=== PATIENT | male | born 1950 | race Caucasian/White ===

== ENCOUNTER 2021-06-27 17:01 | Inpatient (IN) | payer OTHER ==
[~2021-06-27] VITALS: Ht 185.4 cm; Wt 77.7 kg
[2021-06-27] MEDS ORDERED: VITAMIN D3125 MCG PO (17:21)
[2021-06-27] MEDS ORDERED: PROTONIX40 MG PO (17:21)
[2021-06-27] MEDS ORDERED: QUALITY CHOICE81 M1 PO (17:22)
[2021-06-27] MEDS ORDERED: RISPERDAL0.5 MG PO (17:23)
[2021-06-27] MEDS ORDERED: FLONASE ALLERG9.9 ML NAS (17:23)
[2021-06-27] MEDS ORDERED: CARAFATE1 G1 PO (17:24)
[2021-06-27] MEDS ORDERED: REMERON SOLTAB30 MG PO (17:33)
[2021-06-27] MEDS ORDERED: COLACE100 MG PO (17:33)
[2021-06-27] MEDS ORDERED: ATIVAN0.5 MG PO (17:34)
[2021-06-27] MEDS ORDERED: VISTARIL25 MG PO (17:34)
[2021-06-27] MEDS ORDERED: VOLTAREN ARTHRI20 GM T (17:35)
[2021-06-27] MEDS ORDERED: COMPAZINE10 M1 PO (17:36)
[2021-06-27] MEDS ORDERED: BACLOFEN5 MG PO (17:36)
[2021-06-27] MEDS ORDERED: CEPHULAC10 GM/151 PO (17:37)
[2021-06-27] MEDS ORDERED: TYLENOL325 M1 PO (17:37)
[2021-06-27] MEDS ORDERED: VENT7GM INH (17:38)
[2021-06-27] MEDS ORDERED: ROBITUSSIN DM 101 OZ PO (17:39)
[2021-06-27] MEDS ORDERED: TENORMIN25 M1 PO (17:39)
[2021-06-27 17:56] VITALS: BP 133/91
[2021-06-27 20:00] VITALS: BP 155/80
[2021-06-28 07:21] LABS: ALBUMIN 4.1 gm/dl (3.1-4.5); BUN 28 mg/dl (7-24); CHLORIDE 119 mmol/L (98-107); CHOLESTEROL 126 mg/dL (<200); CREATININE 1.09 mg/dL (0.70-1.30); LDL CHOLESTEROL 56 mg/dL (9-159); POTASSIUM 3.2 mmol/L (3.5-5.1); SGOT/AST 13 IU/L (3-35); SGPT/ALT 18 U/L (12-78); SODIUM 146 mmol/L (136-145); TRIGLYCERIDES 130 mg/dl (<150)
[2021-06-28 07:29] LABS: ALKALINE PHOSPHATASE 54 U/L (45-117)
[2021-06-28 07:33] LABS: BASO # 0.1 10*3/uL (0.0-0.1); BASO % 1.3 % (0.0-1.0); EOS # 0.2 10*3/uL (0.0-0.4); EOS % 3.8 % (1.0-4.0); HEMATOCRIT 36.9 % (42.0-52.0); LYMPH % 50.3 % (27.0-41.0); MEAN CELL VOLUME 85.4 fl (80.0-94.0); MEAN CORPUSCULAR HGB 31.7 pg (27.0-31.0); MEAN PLATELET VOLUME 11.6 fl (9.6-12.3); MONO # 0.5 10*3/uL (0.1-1.0); MONO % 12.8 % (3.0-9.0); NEUT # 1.2 10*3/uL (2.3-7.9); NEUT % 31.5 % (47.0-73.0); PLATELET COUNT AUTOMATED 225 10*3/uL (130-400); RED BLOOD COUNT 4.32 10*6/uL (4.50-5.90); WHITE BLOOD COUNT 3.9 10*3/uL (4.8-10.8)
[2021-06-28 07:34] LABS: MEAN CORPUSCULAR HGB CONC 37.1 g/dl (33.0-37.0)
[2021-06-28 07:48] LABS: VITAMIN D, 25-HYDROXY 67.5 ng/mL (30-100)
[2021-06-28 08:06] VITALS: BP 121/67
[2021-06-28 15:50] LABS: BILIRUBIN Negative (Negative); BLOOD Negative (Negative); CLARITY Clear (Clear); COLOR Dark Yellow (Yellow); GLUCOSE Negative (Negative); KETONE 1+ (Negative); LEUKO ESTERASE Negative (Negative); NITRITE Negative (Negative); SPECIFIC GRAVITY >= 1.030 (1.001-1.030)
[2021-06-28 16:13] LABS: BACTERIA TRACE; MUCOUS 2+; RBC 0-2 rbc/hpf (0-2)
[2021-06-28 20:00] VITALS: BP 123/74
[2021-06-29 08:00] VITALS: BP 120/79
[2021-06-29 20:00] VITALS: BP 116/84
[2021-06-30 08:00] VITALS: BP 112/62
[2021-06-30 20:00] VITALS: BP 112/89
[2021-07-01 07:56] VITALS: BP 146/65
[2021-07-01 19:33] VITALS: BP 119/74
[2021-07-02 07:30] VITALS: BP 126/72
[2021-07-02 20:00] VITALS: BP 145/94
[2021-07-03 08:00] VITALS: BP 111/68
[2021-07-03 19:44] VITALS: BP 116/82
[2021-07-04 07:58] VITALS: BP 109/61
[2021-07-04 20:00] VITALS: BP 136/88
[2021-07-05 07:25] VITALS: BP 130/75
[2021-07-05 20:00] VITALS: BP 123/86
[2021-07-06 08:00] VITALS: BP 90/62
[2021-07-06 19:28] VITALS: BP 110/71
[2021-07-07 08:00] VITALS: BP 120/64
[2021-07-07 20:00] VITALS: BP 139/71
[2021-07-08 07:57] VITALS: BP 104/53
[2021-07-08 20:00] VITALS: BP 124/72
[2021-07-09 07:55] VITALS: BP 104/61
[2021-07-09 09:57] LABS: ALBUMIN 3.1 gm/dl (3.1-4.5); ALKALINE PHOSPHATASE 59 U/L (45-117); BUN 24 mg/dl (7-24); CHLORIDE 114 mmol/L (98-107); CREATININE 1.12 mg/dL (0.70-1.30); POTASSIUM 2.9 mmol/L (3.5-5.1); SGOT/AST 22 IU/L (3-35); SGPT/ALT 33 U/L (12-78); SODIUM 143 mmol/L (136-145); TOTAL PROTEIN 7.2 gm/dL (6.4-8.2)
[2021-07-09 10:18] LABS: BASO % 0.4 % (0.0-1.0); EOS # 0.2 10*3/uL (0.0-0.4); EOS % 3.3 % (1.0-4.0); HEMATOCRIT 37.1 % (42.0-52.0); LYMPH % 28.7 % (27.0-41.0); MEAN CELL VOLUME 86.3 fl (80.0-94.0); MEAN CORPUSCULAR HGB 31.9 pg (27.0-31.0); MEAN CORPUSCULAR HGB CONC 36.9 g/dl (33.0-37.0); MONO # 0.9 10*3/uL (0.1-1.0); MONO % 13.5 % (3.0-9.0); NEUT # 3.8 10*3/uL (2.3-7.9); NEUT % 53.7 % (47.0-73.0); PLATELET COUNT AUTOMATED 256 10*3/uL (130-400); RED CELL DISTRI WIDTH 14.1 % (0-14.5)
[2021-07-09 20:45] VITALS: BP 120/69
[2021-07-10 08:00] VITALS: BP 105/66
[2021-07-10 20:00] VITALS: BP 105/80
[2021-07-11 06:46] LABS: BUN 25 mg/dl (7-24); CHLORIDE 116 mmol/L (98-107); CREATININE 0.93 mg/dL (0.70-1.30); SODIUM 144 mmol/L (136-145)
[2021-07-11 07:51] VITALS: BP 114/88
[2021-07-11 20:00] VITALS: BP 104/56
[2021-07-12 07:17] VITALS: BP 110/67
[2021-07-12 19:42] VITALS: BP 119/65
[2021-07-13 07:56] VITALS: BP 112/60
[2021-07-13] MEDS ORDERED: LORAZEPAM0.5 MG PO (10:36)
[2021-07-13] MEDS ORDERED: RIVASTIGMINE1 EAC2 T (10:36)
[2021-07-13] MEDS ORDERED: CLONAZEPAM0.5 M2 PO (10:36)
[2021-07-13] MEDS ORDERED: MIRTAZAPINE15 M2 PO (10:36)
[2021-07-13] MEDS ORDERED: VITAMIN D3125 MC1 PO (10:36)
[2021-07-13] MEDS ORDERED: MEMANTINE HCL10 MG PO (10:36)
[2021-07-13] MEDS ORDERED: OLANZAPINE5 MG PO (10:36)
[2021-07-13] MEDS ORDERED: ZYPREXA2.5 MG PO (10:36)
== END 2021-07-13 14:12 | DRG 885 ==
LOC: 3N 17:01
PROVIDERS: Counselor Professional; Student in an Organized Health Care Education/Training Program; ADMIT Psychiatry & Neurology Psychiatry; ATTEND Psychiatry & Neurology Psychiatry
DX: F33.3 Major depressive disorder, recurrent, severe with psychotic symptoms (principal); S06.9X9A Unspecified intracranial injury with loss of consciousness of unspecified duration, initial encounter; G30.0 Alzheimer's disease with early onset; K44.9 Diaphragmatic hernia without obstruction or gangrene; Z20.822 Contact with and (suspected) exposure to COVID-19; K21.9 Gastro-esophageal reflux disease without esophagitis; I10 Essential (primary) hypertension; F02.80 Dementia in other diseases classified elsewhere, unspecified severity, without behavioral disturbance, psychotic disturbance, mood disturbance, and anxiety; E55.9 Vitamin D deficiency, unspecified; F41.0 Panic disorder [episodic paroxysmal anxiety]; X58.XXXA Exposure to other specified factors, initial encounter; Y93.89 Activity, other specified; Y92.89 Other specified places as the place of occurrence of the external cause; Y99.8 Other external cause status